=== PATIENT | female | born 1935 | race Caucasian/White ===

== ENCOUNTER 2017-05-16 13:45 | Emergency (ER) | payer MEDICARE, BC ==
[2017-05-16 13:56] VITALS: TEMP 97.7
--- NOTE | 2017-05-16 14:19 | ED ---
Back Pain HPI - General Chief Complaint: Back Pain/Injury Stated Complaint: Back/Hip Pain Time Seen by Provider: 05/16/17 13:56 Source: family, EMS Limitations: altered mental status - History of Present Illness Initial Comments: 81-year-old female patient is brought in today by for evaluation of right hip pain. states that staff at her assisted living facility reported that patient started to have hip pain when she woke from sleep today. States that they walked her to the dining room for breakfast and by the time she got to the dining room she could barely walk due to the pain in the hip. Patient and deny any falls. Patient denies any numbness or tingling to the right leg. Patient does have chronic lower back pain which does bother her on a daily basis however this hip pain is new for her. Patient also has upper respiratory symptoms including cough. They state that she has had cough for the last 4-5 days. They deny any fever or chills. They deny any current nasal congestion or sore throat. Patient denies any shortness breath, chest pain, abdominal pain, nausea, vomiting, diarrhea, constipation, back pain, numbness, tingling, headache, visual changes, hematuria, dysuria, urinary frequency, urinary urgency, or any other complaints. - Related Data Home Medications Medication Instructions Recorded Confirmed ALPRAZolam [Xanax] 0.25 mg PO DAILY PRN 05/16/17 05/16/17 Cranberry 425mg 425 mg PO DAILY 05/16/17 05/16/17 Diphenox-Atrop 2.5-0.025 mg 1 tab PO TID 05/16/17 05/16/17 [Lomotil] Donepezil [Aricept] 10 mg PO BID 05/16/17 05/16/17 Ergocalciferol (Vitamin D2) 50,000 unit PO SAMANIEGO 05/16/17 05/16/17 [Vitamin D2] Furosemide [Lasix] 40 mg PO DAILY 05/16/17 05/16/17 Memantine [Namenda] 10 mg PO BID 05/16/17 05/16/17 Menthol [Biofreeze] 1 applic TOPICAL BID 05/16/17 05/16/17 Multivit-Min/FA/Lycopen/Lutein 1 tab PO DAILY 05/16/17 05/16/17 [Centrum Silver Tablet] Sertraline [Zoloft] 100 mg PO DAILY 05/16/17 05/16/17 Triton-3 Elite 1 tab PO DAILY 05/16/17 05/16/17 busPIRone HCL 10 mg PO BID 05/16/17 05/16/17 rOPINIRole HCL [Requip] 0.5 mg PO HS 05/16/17 05/16/17 risperiDONE [RisperDAL] 0.5 mg PO HS 05/16/17 05/16/17 Previous Rx's Medication Instructions Recorded Ibuprofen [Motrin] 400 mg PO Q8HR PRN #20 tab 05/16/17 Allergies Allergy/AdvReac Type Severity Reaction Status Date / Time adhesive tape AdvReac Unknown Verified 05/16/17 14:17 Sulfa (Sulfonamide AdvReac Rash/Hives Verified 05/16/17 14:17 Antibiotics) Review of Systems ROS Statement: Those systems with pertinent positive or pertinent negative responses have been documented in the HPI. ROS Other: All systems not noted in ROS Statement are negative. Past Medical History Past Medical History: Dementia History of Any Multi-Drug Resistant Organisms: None Reported Past Surgical History: Back Surgery, Cholecystectomy, Orthopedic Surgery Past Psychological History: Anxiety, Depression Smoking Status: Never smoker Past Alcohol Use History: None Reported Past Drug Use History: None Reported General Exam Limitations: altered mental status General appearance: alert, in no apparent distress, other (This is a well- developed, well-nourished elderly female patient in no acute distress. Vital signs upon presentation her temperature 97.7F, pulse 63, respirations 18, blood pressure 116/57, pulse ox 95% on room air.) Eye exam: Present: normal appearance, PERRL, EOMI. Absent: scleral icterus, conjunctival injection, periorbital swelling ENT exam: Present: normal exam, normal oropharynx, mucous membranes moist Respiratory exam: Present: normal lung sounds bilaterally, wheezes (Scattered expiratory wheezes and posterior lung trujillo, good air movement). Absent: respiratory distress, rales, rhonchi, stridor Cardiovascular Exam: Present: regular rate, normal rhythm, normal heart sounds. Absent: systolic murmur, diastolic murmur, rubs, gallop, clicks GI/Abdominal exam: Present: soft, normal bowel sounds. Absent: distended, tenderness, guarding, rebound, rigid Extremities exam: Present: normal inspection, full ROM, tenderness (The right hip), normal capillary refill, other (Skin to the lower extremities is pink, warm, and dry. Cap refills less than 3 seconds. Pedal and posttibial pulses are 2+ and equal bilaterally.). Absent: pedal edema, joint swelling, calf tenderness Back exam: Present: normal inspection. Absent: tenderness Neurological exam: Present: alert, CN II-XII intact. Absent: oriented X3 ( Oriented 1 only, this is baseline for patient) Psychiatric exam: Present: normal affect, normal mood Skin exam: Present: warm, dry, intact, normal color. Absent: rash Course Vital Signs 05/16/17 05/16/17 13:50 15:25 Temperature 97.7 F Pulse Rate 63 61 Respiratory 18 16 Rate Blood Pressure 116/57 136/61 O2 Sat by Pulse 95 93 L Oximetry Medical Decision Making - Medical Decision Making 81-year-old female patient presents to the emergency department today for evaluation of right hip pain. Physical exam is unremarkable, skin to the right leg is pink warm and dry. Cap refill is less than 3 seconds. Distal pulses are intact. Patient does have increased pain with range of motion. There is no evidence of rash. X-ray was obtained and did show significant degenerative changes. There was also an incidental finding of sclerotic lesions to the bilateral SI joints. Did explain findings to the patient's , and did instruct him to follow-up with the primary care physician for possible bone scan. I did explain to them that her symptoms are most likely caused from arthritis, and did add a low-dose nonsteroidal anti-inflammatory medication to her regimen. I instructed them to follow-up with the primary physician for recheck in 1-2 days. I instructed them to return here immediately for any new, worsening, or concerning symptoms. They verbalized understanding and agreed with this plan. - Radiology Data Radiology results: report reviewed, image reviewed X-ray of the right hip and pelvis is obtained, report reviewed in its entirety, impression by Dr. Senior shows no acute fracture or dislocation of the pelvis or right hip. Extensive right femoral acetabular arthropathy with [id number] articulation of the cephalad femoral head with the acetabulum. Patchy sclerosis at the sacroiliac joints involving the left femur that may be degenerative or could relate to sclerotic foci of metastatic disease. Correlate with patient's history. If there is further clinical concerned bone scan could be performed on an nonemergent basis. Two-view x-ray of the chest revealed poor reviewed in its entirety, impression by Dr. Senior shows no focal consolidation or acute cardiopulmonary process, however there is right hemidiaphragm elevation. Multifocal subsegmental atelectasis as a result of low lung volumes. Chronic right rotator cuff injury and extensive right shoulder arthropathy. Disposition Clinical Impression: Arthritis of right hip Disposition: HOME SELF-CARE Condition: Good Instructions: Osteoarthritis (ED), Hip Pain (ED) Additional Instructions: Take medication as directed. Take pills with food. Follow-up with the primary care physician for recheck in 1-2 days. Return here immediately for any new, worsening, or concerning symptoms. Prescriptions: Ibuprofen [Motrin] 400 mg PO Q8HR PRN #20 tab PRN Reason: Pain Referrals: Wilian Guzman MD [Primary Care Provider] - 1-2 days Time of Disposition: 14:53
--- NOTE | 2017-05-16 14:42 | XR ---
EXAMINATION TYPE: XR chest 2V DATE OF EXAM: 05/16/2017 COMPARISON: NONE HISTORY: Chest pain TECHNIQUE: Frontal and lateral views of the chest are obtained. FINDINGS: Right hemidiaphragm is elevated and there are overall low lung volumes. This creates crowd ing of the pulmonary vasculature and multifocal subsegmental linear atelectasis. No focal consolidati on, pleural effusion or pneumothorax is seen. The lungs volumes also accentuate the mediastinal size. No cardiomegaly. Extensive degenerative changes of the right glenohumeral and acromio clavicular britta nt are seen with acetabulization of the right acromion and [id number] articulation of the acromial inferior cortical surface with the humerus relating to chronic rotator cuff injury. IMPRESSION: 1. No focal consolidation or acute cardiopulmonary process, however there is right hemidiaphragm elev ation. If there is concern for phrenic nerve injury sniff test could be performed on a nonemergent ba sis. 2. Multifocal subsegmental atelectasis as a result of low lung volumes. 3. Chronic right rotator cuff injury and extensive right shoulder arthropathy.
--- NOTE | 2017-05-16 14:45 | XR ---
EXAMINATION TYPE: XR Hip RT and AP Pelvis DATE OF EXAM: 05/16/2017 COMPARISON: NONE HISTORY: Pain TECHNIQUE: A single AP view of the pelvis is obtained. Two views of the right hip are obtained. FINDINGS: There is no acute fracture/dislocation evident in the pelvis. The hip and sacroiliac join ts appear symmetric and unremarkable. The overlying soft tissue appears unremarkable. Two views of right hip show no acute fracture or dislocation. No focal lytic or sclerotic lesion see n in the proximal right femur. The overlying soft tissue is unremarkable. Extensive degenerative ch anges of the right femoral acetabular joint are seen as there is cephalad joint space narrowing of shannan ne-on-bone articulation and subchondral cysts. Marginal osteophytes are seen from the superior latera l and inferior medial right femoral head. Moderate degenerative changes of the left femoral acetabula r joint are also noted. Postsurgical changes of the lumbosacral spine are present. Patchy sclerosis a t the sacroiliac joints bilaterally is likely degenerative. Increased density of the left femur in co mparison to the right may be positional although sclerotic metastatic lesions are possible. IMPRESSION: 1. There is no acute fracture or dislocation in the pelvis or right hip. 2. Extensive right femoral acetabular arthropathy with [id number] articulation of the cephalad femo ral head with the acetabulum. 3. Patchy sclerosis at the sacroiliac joints and involving the left femur that may be degenerative or could relate to sclerotic foci of metastatic disease. Correlate with the patient's history. If there is further clinical concern bone scan could be performed on a nonemergent basis.
[2017-05-16] MEDS ORDERED: IBUPROFEN 400 MG TAB PO STA (15:01)
[2017-05-16 15:26] VITALS: BP 136/61; PULSE 61; RESP 16
== END 2017-05-16 15:33 | disposition home or self-care (01) ==
LOC: EC 13:45
DX: M16.11 Unilateral primary osteoarthritis, right hip (principal); M54.5 Low back pain; G89.29 Other chronic pain; R05 Cough; F03.90 Unspecified dementia, unspecified severity, without behavioral disturbance, psychotic disturbance, mood disturbance, and anxiety; F32.9 Major depressive disorder, single episode, unspecified; F41.9 Anxiety disorder, unspecified; Z98.890 Other specified postprocedural states; Z88.2 Allergy status to sulfonamides; Z91.048 Other nonmedicinal substance allergy status; Z79.899 Other long term (current) drug therapy
CPT/HCPCS: 71020; 73502; 99284

== ENCOUNTER 2017-06-30 09:08 | Emergency (ER) | payer MEDICARE, BC ==
[2017-06-30] MEDS ORDERED: SODIUM CHLORIDE 0.9% 500 ML IV ONE (09:20)
--- NOTE | 2017-06-30 09:24 | ED ---
General Adult HPI - General Stated complaint: Syncope Time Seen by Provider: 06/30/17 09:10 Source: RN notes reviewed - History of Present Illness Initial comments: This is an 82-year-old female presents emergency Department because of altered mental status. [facility] she came down for breakfast and then was unresponsive to them for about 2-3 minutes. Patient is normally only alert and oriented times one which she currently is. Staff did not notice any difficulty breathing she did not appear to be in any distress she has not recently had any vomiting or diarrhea that they know when she has not recently had a fever that they know. Patient is unable to give any history at all. There is no family member or staff member with the patient. - Related Data Home Medications Medication Instructions Recorded Confirmed Cranberry 425mg 425 mg PO DAILY@0800 05/16/17 06/30/17 Diphenox-Atrop 2.5-0.025 mg 1 tab PO TID@0800,1400,199905/16/17 06/30/17 [Lomotil] Donepezil [Aricept] 10 mg PO BID@0800,179905/16/17 06/30/17 Ergocalciferol (Vitamin D2) 50,000 unit PO SAMANIEGO 05/16/17 06/30/17 [Vitamin D2] Furosemide [Lasix] 40 mg PO DAILY@0800 05/16/17 06/30/17 Memantine [Namenda] 10 mg PO BID@0800,199905/16/17 06/30/17 Menthol [Biofreeze] 1 applic TOPICAL BID@0800,199905/16/17 06/30/17 Multivit-Min/FA/Lycopen/Lutein 1 tab PO DAILY@0800 05/16/17 06/30/17 [Centrum Silver Tablet] Sertraline [Zoloft] 100 mg PO DAILY@0800 05/16/17 06/30/17 Triton-3 Elite 1 tab PO DAILY@0800 05/16/17 06/30/17 busPIRone HCL 10 mg PO BID@0800,1800 05/16/17 06/30/17 risperiDONE [RisperDAL] 0.5 mg PO HS@199905/16/17 06/30/17 Cardio Clear 1 cap PO DAILY@0800 06/30/17 06/30/17 Ibuprofen [Motrin] 400 mg PO Q8H PRN 06/30/17 06/30/17 Allergies Allergy/AdvReac Type Severity Reaction Status Date / Time adhesive tape AdvReac Unknown Verified 06/30/17 09:09 Sulfa (Sulfonamide AdvReac Rash/Hives Verified 06/30/17 09:09 Antibiotics) Review of Systems ROS Statement: Those systems with pertinent positive or pertinent negative responses have been documented in the HPI. ROS Other: All systems not noted in ROS Statement are negative. Past Medical History Past Medical History: Dementia History of Any Multi-Drug Resistant Organisms: None Reported Past Surgical History: Back Surgery, Cholecystectomy, Orthopedic Surgery Past Psychological History: Anxiety, Depression Smoking Status: Never smoker Past Alcohol Use History: None Reported Past Drug Use History: None Reported General Exam - General Exam Comments Initial Comments: GENERAL: Patient is well-developed and well-nourished. Patient is nontoxic and well- hydrated and is in no acute distress. ENT: Neck is soft and supple. No significant lymphadenopathy is noted. Oropharynx is clear. Moist mucous membranes. Neck has full range of motion without eliciting any pain. EYES: The sclera were anicteric and conjunctiva were pink and moist. Extraocular movements were intact and pupils were equal round and reactive to light. Eyelids were unremarkable. PULMONARY: Unlabored respirations. Good breath sounds bilaterally. No audible rales rhonchi or wheezing was noted. CARDIOVASCULAR: There is a regular rate and rhythm without any murmurs gallops or rubs. ABDOMEN: Soft and nontender with normal bowel sounds. No palpable organomegaly was noted. There is no palpable pulsatile mass. SKIN: Skin is clear with no lesions or rashes and otherwise unremarkable. NEUROLOGIC: Patient is alert and oriented times one. Cranial nerves II through XII are grossly intact. Motor and sensory are also intact. Normal speech, volume and content. Symmetrical smile. MUSCULOSKELETAL: Normal extremities with adequate strength and full range of motion. No lower extremity swelling or edema. No calf tenderness. LYMPHATICS: No significant lymphadenopathy is noted PSYCHIATRIC: Unable to assess secondary to patient's dementia Course Vital Signs 06/30/17 06/30/17 09:20 11:23 Temperature 98.7 F Pulse Rate 65 67 Respiratory 18 18 Rate Blood Pressure 116/55 129/60 O2 Sat by Pulse 98 99 Oximetry Medical Decision Making - Medical Decision Making EKG shows normal sinus rhythm at 65 bpm MS interval is 156 QRS is 94 Q-T intervals 424 QTC is 440. Patient's EKG shows no ST segment elevation or depression or T wave abnormalities are noted. Patient is able to follow basic commands and knows her name. According to the the patient was only altered and not responding for 2- 3 minutes. She was never unconscious. states since she's been here in emergency department she has been at her baseline. - Lab Data Result diagrams: 06/30/17 09:43 06/30/17 09:43 Lab Results 06/30/17 06/30/17 06/30/17 Range/Units 09:43 09:43 09:43 WBC 5.3 (3.8-10.6) k/uL RBC 4.39 (3.80-5.40) m/uL Hgb 13.6 (11.4-16.0) gm/dL Hct 41.3 (34.0-46.0) % MCV 93.9 (80.0-100.0) fL MCH 31.0 (25.0-35.0) pg MCHC 33.1 (31.0-37.0) g/dL RDW 13.2 (11.5-15.5) % Plt Count 168 (150-450) k/uL Neutrophils % 68 % Lymphocytes % 22 % Monocytes % 5 % Eosinophils % 3 % Basophils % 1 % Neutrophils # 3.6 (1.3-7.7) k/uL Lymphocytes # 1.2 (1.0-4.8) k/uL Monocytes # 0.3 (0-1.0) k/uL Eosinophils # 0.2 (0-0.7) k/uL Basophils # 0.0 (0-0.2) k/uL PT (9.0-12.0) sec INR (<1.2) APTT (22.0-30.0) sec Sodium 142 (137-145) mmol/L Potassium 3.9 (3.5-5.1) mmol/L Chloride 102 (98-107) mmol/L Carbon Dioxide 29 (22-30) mmol/L Anion Gap 11 mmol/L BUN 23 H (7-17) mg/dL Creatinine 0.95 (0.52-1.04) mg/dL Est GFR (MDRD) Af Amer >60 (>60 ml/min/1.73 sqM) Est GFR (MDRD) Non-Af 56 (>60 ml/min/1.73 sqM) Glucose 115 H (74-99) mg/dL POC Glucose (mg/dL) (75-99) mg/dL POC Glu Chinese Herbalist ID Calcium 9.9 (8.4-10.2) mg/dL Total Bilirubin 0.5 (0.2-1.3) mg/dL AST 25 (14-36) U/L ALT 33 (9-52) U/L Alkaline Phosphatase 54 (38-126) U/L Total Creatine Kinase 75 (30-135) U/L CK-MB (CK-2) 1.9 (0.0-2.4) ng/mL CK-MB (CK-2) Rel Index 2.5 Troponin I <0.012 (0.000-0.034) ng/mL Total Protein 6.9 (6.3-8.2) g/dL Albumin 4.0 (3.5-5.0) g/dL Urine Color Urine Appearance (Clear) Urine pH (5.0-8.0) Ur Specific [place] (1.001-1.035) Urine Protein (Negative) Urine Glucose (UA) (Negative) Urine Ketones (Negative) Urine Blood (Negative) Urine Nitrite (Negative) Urine Bilirubin (Negative) Urine Urobilinogen (<2.0) mg/dL Ur Leukocyte Esterase (Negative) Urine Opiates Screen (NotDetected) Ur Oxycodone Screen (NotDetected) Urine Methadone Screen (NotDetected) Ur Propoxyphene Screen (NotDetected) Ur Barbiturates Screen (NotDetected) U Tricyclic Antidepress (NotDetected) Ur Phencyclidine Scrn (NotDetected) Ur Amphetamines Screen (NotDetected) U Methamphetamines Scrn (NotDetected) U Benzodiazepines Scrn (NotDetected) Urine Cocaine Screen (NotDetected) U Marijuana (THC) Screen (NotDetected) 06/30/17 06/30/17 06/30/17 Range/Units 09:43 09:51 11:00 WBC (3.8-10.6) k/uL RBC (3.80-5.40) m/uL Hgb (11.4-16.0) gm/dL Hct (34.0-46.0) % MCV (80.0-100.0) fL MCH (25.0-35.0) pg MCHC (31.0-37.0) g/dL RDW (11.5-15.5) % Plt Count (150-450) k/uL Neutrophils % % Lymphocytes % % Monocytes % % Eosinophils % % Basophils % % Neutrophils # (1.3-7.7) k/uL Lymphocytes # (1.0-4.8) k/uL Monocytes # (0-1.0) k/uL Eosinophils # (0-0.7) k/uL Basophils # (0-0.2) k/uL PT 10.7 (9.0-12.0) sec INR 1.1 (<1.2) APTT 22.1 (22.0-30.0) sec Sodium (137-145) mmol/L Potassium (3.5-5.1) mmol/L Chloride (98-107) mmol/L Carbon Dioxide (22-30) mmol/L Anion Gap mmol/L BUN (7-17) mg/dL Creatinine (0.52-1.04) mg/dL Est GFR (MDRD) Af Amer (>60 ml/min/1.73 sqM) Est GFR (MDRD) Non-Af (>60 ml/min/1.73 sqM) Glucose (74-99) mg/dL POC Glucose (mg/dL) 108 H (75-99) mg/dL POC Glu Chinese Herbalist ID Talia Ag Calcium (8.4-10.2) mg/dL Total Bilirubin (0.2-1.3) mg/dL AST (14-36) U/L ALT (9-52) U/L Alkaline Phosphatase (38-126) U/L Total Creatine Kinase (30-135) U/L CK-MB (CK-2) (0.0-2.4) ng/mL CK-MB (CK-2) Rel Index Troponin I (0.000-0.034) ng/mL Total Protein (6.3-8.2) g/dL Albumin (3.5-5.0) g/dL Urine Color Yellow Urine Appearance Clear (Clear) Urine pH 6.5 (5.0-8.0) Ur Specific [place] 1.011 (1.001-1.035) Urine Protein Negative (Negative) Urine Glucose (UA) Negative (Negative) Urine Ketones Negative (Negative) Urine Blood Negative (Negative) Urine Nitrite Negative (Negative) Urine Bilirubin Negative (Negative) Urine Urobilinogen <2.0 (<2.0) mg/dL Ur Leukocyte Esterase Negative (Negative) Urine Opiates Screen Not Detected (NotDetected) Ur Oxycodone Screen Not Detected (NotDetected) Urine Methadone Screen Not Detected (NotDetected) Ur Propoxyphene Screen Not Detected (NotDetected) Ur Barbiturates Screen Not Detected (NotDetected) U Tricyclic Antidepress Not Detected (NotDetected) Ur Phencyclidine Scrn Not Detected (NotDetected) Ur Amphetamines Screen Not Detected (NotDetected) U Methamphetamines Scrn Not Detected (NotDetected) U Benzodiazepines Scrn Not Detected (NotDetected) Urine Cocaine Screen Not Detected (NotDetected) U Marijuana (THC) Screen Not Detected (NotDetected) Disposition Clinical Impression: Altered mental state, Dementia Disposition: HOME SELF-CARE Referrals: Wilian Guzman MD [Primary Care Provider] - 1-2 days Time of Disposition: 11:57
[2017-06-30 09:52] LABS: Glucose,Whole Blood 108 mg/dL (75-99)
[2017-06-30 10:00] LABS: Basophils % (A) 1 %; Eosinophils # (A) 0.2 k/uL (0-0.7); Eosinophils % (A) 3 %; HCT 41.3 % (34.0-46.0); HGB 13.6 gm/dL (11.4-16.0); Lymphocytes # (A) 1.2 k/uL (1.0-4.8); Lymphocytes % (A) 22 %; MCHC 33.1 g/dL (31.0-37.0); MCV 93.9 fL (80.0-100.0); Mean Platelet Volume 7.2; Monocytes # (A) 0.3 k/uL (0-1.0); Monocytes % (A) 5 %; Neutrophils # (A) 3.6 k/uL (1.3-7.7); Neutrophils % (A) 68 %; Platelet Count 168 k/uL (150-450); RBC 4.39 m/uL (3.80-5.40); RDW 13.2 % (11.5-15.5); WBC 5.3 k/uL (3.8-10.6)
[2017-06-30 10:13] LABS: ALT 33 U/L (9-52); AST 25 U/L (14-36); Alkaline Phosphatase 54 U/L (38-126); Anion Gap 11 mmol/L; Blood Urea Nitrogen 23 mg/dL (7-17); Calcium 9.9 mg/dL (8.4-10.2); Carbon Dioxide 29 mmol/L (22-30); Chloride 102 mmol/L (98-107); Glucose 115 mg/dL (74-99); Potassium 3.9 mmol/L (3.5-5.1); Sodium 142 mmol/L (137-145); Total Bilirubin 0.5 mg/dL (0.2-1.3); Total Protein 6.9 g/dL (6.3-8.2)
--- NOTE | 2017-06-30 10:16 | CT ---
EXAMINATION TYPE: CT brain wo con DATE OF EXAM: 06/30/2017 COMPARISON: 05/04/2011 HISTORY: Syncope CT DLP: [address] of the brain was performed. The ventricles, basal cisterns and sulci overlying the cerebral convexities demonstrate mild enlargem ent. There is no evidence for intracranial hemorrhage or sulcal effacement. There is decreased attenuation about the periventricular white matter and deep white matter of both c erebral hemispheres, compatible with chronic small vessel ischemia. Differential diagnosis does inclu de demyelination. No mass effects are seen.No midline shift. Osseous calvarium is intact. If symptoms persist consider MRI. IMPRESSION: 1. Age related atrophic and chronic small vessel ischemic change without acute intracranial process s een at this time.
[2017-06-30 10:20] LABS: INR 1.1 (<1.2); Partial Thromboplastin Time 22.1 sec (22.0-30.0); Prothrombin Time 10.7 sec (9.0-12.0)
--- NOTE | 2017-06-30 10:34 | XR ---
EXAMINATION TYPE: XR chest 2V DATE OF EXAM: 06/30/2017 COMPARISON: NONE HISTORY: Shortness of breath TECHNIQUE: Frontal and lateral views of the chest are obtained. FINDINGS: Scattered senescent parenchymal changes noted. Lung volumes are diminished. No evidence for infiltrate. No evidence for atelectasis. Heart size is stable. Mediastinal structures are stable and grossly unremarkable. No evidence for hilar prominence. Degenerative changes dorsal spine. IMPRESSION: 1. No evidence for acute pulmonary disease.
[2017-06-30 10:36] LABS: Creatine Kinase 75 U/L (30-135)
[2017-06-30 10:50] LABS: Creatine Kinase MB 1.9 ng/mL (0.0-2.4); Troponin I <0.012 ng/mL (0.000-0.034)
[2017-06-30 11:33] LABS: Appearance,Urine Clear (Clear); Bilirubin,Urine Negative (Negative); Blood,Urine Negative (Negative); Color,Urine Yellow; Glucose,Urine (UA) Negative (Negative); Ketones,Urine Negative (Negative); Leukocyte Esterase,Urine Negative (Negative); Nitrite,Urine Negative (Negative); PH, Urine 6.5 (5.0-8.0); Protein,Urine Negative (Negative); Specific Gravity,Urine 1.011 (1.001-1.035); Urobilinogen,Urine <2.0 mg/dL (<2.0)
[2017-06-30 11:45] LABS: Amphetamine Screen,Urine Not Detected (NotDetected); Barbiturate Screen,Urine Not Detected (NotDetected); Benzodiazepines Screen,Urine Not Detected (NotDetected); Cocaine Screen,Urine Not Detected (NotDetected); Methadone Screen, Urine Not Detected (NotDetected); Opiate Screen,Urine Not Detected (NotDetected); Oxycodone Screen, Urine Not Detected (NotDetected); Phencyclidine Screen,Urine Not Detected (NotDetected); Tricyclic Antidepressant,Urine Not Detected (NotDetected); Urn Cannabinoid Scrn Not Detected (NotDetected)
[2017-07-01 22:59] VITALS: BP 115/65; PULSE 60; RESP 18; TEMP 98.1
== END 2017-06-30 12:23 | disposition home or self-care (01) ==
LOC: EC 09:08
DX: F03.90 Unspecified dementia, unspecified severity, without behavioral disturbance, psychotic disturbance, mood disturbance, and anxiety (principal); R41.82 Altered mental status, unspecified; F32.9 Major depressive disorder, single episode, unspecified; F41.9 Anxiety disorder, unspecified; Z79.899 Other long term (current) drug therapy; Z88.2 Allergy status to sulfonamides; Z91.048 Other nonmedicinal substance allergy status
CPT/HCPCS: 36415; 70450; 71046; 80053; 80306; 81003; 82550; 82553; 84484; 85025; 85610; 85730; 93005; 96360; 96361; 99285